=== PATIENT | male | born 1970 | race Caucasian/White ===

== ENCOUNTER 2017-03-21 01:43 | Observation (INO) | payer MEDICAID ==
[2017-03-21] MEDS: HYDROmorphONE 1 MG/ML SYG IV (02:05)
[2017-03-21 02:06] LABS: ADD MAN DIFF? NO
[2017-03-21 02:18] LABS: BASOPHILS % 0.4 % (0.0-2.0); EOSINOPHILS # 0.2 10^3/ul (0.0-0.5); HEMATOCRIT 38.9 % (42.0-52.0); HEMOGLOBIN 12.9 g/dl (14.0-18.0); LYMPHOCYTES % 25.8 % (15.0-51.0); MEAN CORPUSCULAR HEMOGLOBIN 27.7 pg (29.0-33.0); MEAN CORPUSCULAR HGB CONC 33.2 g/dl (32.0-37.0); MEAN CORPUSCULAR VOLUME 83.5 fl (82.0-101.0); MEAN PLATELET VOLUME 8.7 fl (7.4-10.4); MONOCYTE # 0.5 10^3/ul (0.3-0.9); MONOCYTES % 6.2 % (0.0-11.0); NEUTROPHILS % 65.3 % (39.0-77.0); PLATELET COUNT 239 10^3/UL (140-415); RED BLOOD COUNT 4.66 10^6/ul (4.70-6.10)
[2017-03-21 02:18] LABS: WHITE BLOOD COUNT 7.6 10^3/ul (4.8-10.8)
[2017-03-21 02:28] LABS: ANION GAP 13 (8-16); BLOOD UREA NITROGEN 6 mg/dl (7-20); CARBON DIOXIDE 27 mmol/L (21-31); CHLORIDE 103 mmol/L (97-110); CREATININE 0.82 mg/dl (0.61-1.24); GLUCOSE 106 mg/dl (70-220); SODIUM 140 mmol/L (135-144)
[2017-03-21 02:50] LABS: TROPONIN-I < 0.012 ng/ml (0.00-0.12)
[2017-03-21 02:52] LABS: POTASSIUM 2.9 mmol/L (3.5-5.1)
[2017-03-21] MEDS: MAGNESIUM SULFATE 2 GM/50 ML 50 ML IVPB (03:47)
[2017-03-21] MEDS: POTASSIUM CHLORIDE 40 MEQ in SOD CHLORIDE 0.9% 1,000 ML IV (03:48)
[2017-03-21] MEDS: POTASSIUM CHLORIDE (SR) 20 MEQ TAB PO (03:48)
[2017-03-21] MEDS: SOD CHLORIDE 0.9% 100 ML ×2 (03:48→03:52)
[2017-03-21] MEDS: IOHEXOL 100 ML (03:52)
[2017-03-21] MEDS: IOHEXOL 350MG/ML 50 ML BTL (03:53)
[2017-03-21] MEDS: morphine 4 MG/ML VIAL IV (03:59)
[2017-03-21 04:11] LABS: MAGNESIUM 1.7 mg/dl (1.7-2.5)
[2017-03-21] MEDS ORDERED: LORAZEPAM 2 MG INJ IV (06:00)
[2017-03-21] MEDS ORDERED: ONDANSETRON 4 MG INJ IV ×2 (06:00→07:00)
[2017-03-21] MEDS ORDERED: morphine 2 MG INJ IV (06:00)
[2017-03-21] MEDS ORDERED: NA PHOSPHATE/BIPHOS 133 ML ENEMA PR (06:00)
[2017-03-21] MEDS ORDERED: hydrALAzine 20 MG INJ IV (06:00)
[2017-03-21] MEDS ORDERED: DOCUSATE SODIUM 100 MG CAP PO (06:00)
[2017-03-21] MEDS ORDERED: NITROGLYCERIN (SL) 0.4 MG TAB SL (06:00)
[2017-03-21] MEDS ORDERED: NACL 0.9% 3 ML SYG IV (06:00)
[2017-03-21] MEDS ORDERED: MAGNESIUM HYDROXIDE 30ML CUP PO (06:00)
[2017-03-21] MEDS ORDERED: ACETAMINOPHEN 325 MG TAB PO ×2 (06:00→07:00)
[2017-03-21] MEDS ORDERED: ALBUTEROL/IPRATROPIUM (NEB) 3 ML AMP HHN (06:00)
[2017-03-21] MEDS: PANTOPRAZOLE (EC) 40 MG TAB PO (09:32)
[2017-03-21] MEDS: HEPARIN 5,000 UNIT/0.5 ML VIAL SC ×2 (09:32→21:07)
[2017-03-21] MEDS: HYDROCODONE/APAP (5/325) TAB PO (09:33)
[2017-03-21] MEDS: SOD CHLORIDE 0.45% 1,000 ML IV ×2 (09:33→18:00)
[2017-03-21 10:08] LABS: CREATINE KINASE 158 IU/L (23-200)
[2017-03-21 10:18] LABS: CK INDEX 0.6
[2017-03-21 10:20] LABS: CK-MB 0.87 ng/ml (0.0-2.4); TROPONIN-I < 0.012 ng/ml (0.00-0.12)
[2017-03-21 12:24] LABS: FREE T4 (FREE THYROXINE) 1.28 ng/dl (0.64-1.79)
[2017-03-21] MEDS: ASPIRIN (EC) 325 MG TAB PO (12:24)
[2017-03-21] MEDS: NICOTINE (14 MG/24 HR) PATCH TRANSDERM (12:25)
[2017-03-21 14:16] LABS: CREATINE KINASE 138 IU/L (23-200)
[2017-03-21 14:18] LABS: ANION GAP 12 (8-16); BLOOD UREA NITROGEN 6 mg/dl (7-20); CALCIUM 8.7 mg/dl (8.4-10.2); CARBON DIOXIDE 24 mmol/L (21-31); CHLORIDE 107 mmol/L (97-110); CREATININE 0.76 mg/dl (0.61-1.24); GLUCOSE 86 mg/dl (70-220); MAGNESIUM 2.2 mg/dl (1.7-2.5); POTASSIUM 3.8 mmol/L (3.5-5.1); SODIUM 139 mmol/L (135-144)
[2017-03-21 14:26] LABS: CK INDEX 0.5
[2017-03-21 14:31] LABS: CK-MB 0.73 ng/ml (0.0-2.4); TROPONIN-I < 0.012 ng/ml (0.00-0.12)
[2017-03-21] MEDS: KETOROLAC 30 MG INJ IV (16:38)
[2017-03-22 05:41] LABS: ADD MAN DIFF? NO
[2017-03-22 05:43] LABS: BASOPHILS % 0.8 % (0.0-2.0); EOSINOPHILS # 0.2 10^3/ul (0.0-0.5); EOSINOPHILS % 3.5 % (0.0-7.0); HEMATOCRIT 38.9 % (42.0-52.0); HEMOGLOBIN 12.5 g/dl (14.0-18.0); LYMPHOCYTES % 39.9 % (15.0-51.0); MEAN CORPUSCULAR HEMOGLOBIN 27.7 pg (29.0-33.0); MEAN CORPUSCULAR HGB CONC 32.1 g/dl (32.0-37.0); MEAN CORPUSCULAR VOLUME 86.1 fl (82.0-101.0); MONOCYTE # 0.4 10^3/ul (0.3-0.9); MONOCYTES % 7.5 % (0.0-11.0); NEUTROPHIL # 2.4 10^3/ul (1.6-7.5); NEUTROPHILS % 48.1 % (39.0-77.0); PLATELET COUNT 221 10^3/UL (140-415); RED BLOOD COUNT 4.52 10^6/ul (4.70-6.10); RED CELL DISTRIBUTION WIDTH 13.3 % (11.5-14.5)
[2017-03-22 05:43] LABS: WHITE BLOOD COUNT 4.9 10^3/ul (4.8-10.8)
[2017-03-22 05:54] LABS: HEMOGLOBIN A1C 5.2 % (0-5.9)
[2017-03-22 06:08] LABS: CHOL/HDL RATIO 3.5 RATIO; HDL CHOLESTEROL 44 mg/dl (27-67); LDL CHOLESTEROL,CALCULATED 93 mg/dl; TRIGLYCERIDES 101 mg/dl (0-149)
[2017-03-22 06:08] LABS: CHOLESTEROL 157 mg/dl (100-200)
[2017-03-22 06:09] LABS: ANION GAP 10 (8-16); BLOOD UREA NITROGEN 11 mg/dl (7-20); CARBON DIOXIDE 30 mmol/L (21-31); CHLORIDE 105 mmol/L (97-110); CREATININE 0.97 mg/dl (0.61-1.24); GLUCOSE 99 mg/dl (70-220); MAGNESIUM 2.1 mg/dl (1.7-2.5); PHOSPHORUS 4.8 mg/dl (2.5-4.9); POTASSIUM 4.1 mmol/L (3.5-5.1); SODIUM 141 mmol/L (135-144)
[2017-03-22] MEDS: PANTOPRAZOLE (EC) 40 MG TAB PO (06:28)
[2017-03-22] MEDS: SOD CHLORIDE 0.45% 1,000 ML IV (09:04)
[2017-03-22] MEDS: HEPARIN 5,000 UNIT/0.5 ML VIAL SC ×2 (09:05→20:51)
[2017-03-22] MEDS: ASPIRIN (EC) 325 MG TAB PO (10:05)
[2017-03-22] MEDS: NICOTINE (14 MG/24 HR) PATCH TRANSDERM (10:06)
[2017-03-22] MEDS: INFLUENZA VIRUS VACCINE 0.5 ML SYG IM* (11:01)
[2017-03-22] MEDS: HYDROCODONE/APAP (5/325) TAB PO (22:01)
[2017-03-23 04:50] LABS: ADD MAN DIFF? NO
[2017-03-23 04:54] LABS: WHITE BLOOD COUNT 5.5 10^3/ul (4.8-10.8)
[2017-03-23 04:54] LABS: BASOPHILS % 0.4 % (0.0-2.0); EOSINOPHILS # 0.2 10^3/ul (0.0-0.5); EOSINOPHILS % 3.1 % (0.0-7.0); HEMATOCRIT 37.9 % (42.0-52.0); HEMOGLOBIN 12.1 g/dl (14.0-18.0); LYMPHOCYTES # 1.8 10^3/ul (0.8-2.9); MEAN CORPUSCULAR HEMOGLOBIN 27.9 pg (29.0-33.0); MEAN CORPUSCULAR HGB CONC 31.9 g/dl (32.0-37.0); MEAN CORPUSCULAR VOLUME 87.3 fl (82.0-101.0); MEAN PLATELET VOLUME 8.7 fl (7.4-10.4); MONOCYTE # 0.4 10^3/ul (0.3-0.9); MONOCYTES % 7.5 % (0.0-11.0); NEUTROPHIL # 3.1 10^3/ul (1.6-7.5); NEUTROPHILS % 55.8 % (39.0-77.0); PLATELET COUNT 213 10^3/UL (140-415); RED BLOOD COUNT 4.34 10^6/ul (4.70-6.10); RED CELL DISTRIBUTION WIDTH 13.2 % (11.5-14.5)
[2017-03-23 05:35] LABS: ANION GAP 11 (8-16); BLOOD UREA NITROGEN 12 mg/dl (7-20); CALCIUM 8.5 mg/dl (8.4-10.2); CARBON DIOXIDE 27 mmol/L (21-31); CHLORIDE 108 mmol/L (97-110); GLUCOSE 113 mg/dl (70-220); SODIUM 142 mmol/L (135-144)
[2017-03-23 06:28] LABS: TROPONIN-I < 0.012 ng/ml (0.00-0.12)
[2017-03-23] MEDS: HEPARIN 5,000 UNIT/0.5 ML VIAL SC (08:31)
[2017-03-23] MEDS: NICOTINE (14 MG/24 HR) PATCH TRANSDERM (08:32)
[2017-03-23] MEDS: ASPIRIN 81 MG TAB PO (08:33)
[2017-03-23] MEDS: REGADENOSON 0.4 MG/5 ML SYG (11:20)
== END 2017-03-23 14:15 | disposition home or self-care (01) ==
LOC: E/R 01:43 → MS3 06:55
DX: R07.9 Chest pain, unspecified (principal); E87.6 Hypokalemia; I10 Essential (primary) hypertension; Z72.0 Tobacco use; R94.31 Abnormal electrocardiogram [ECG] [EKG]; E05.80 Other thyrotoxicosis without thyrotoxic crisis or storm; Z79.82 Long term (current) use of aspirin; Z23 Encounter for immunization
CPT/HCPCS: 36415; 70498; 71045; 71275; 75635; 78452; 80048; 80061; 82550; 82553; 83036; 83735; 84100; 84439; 84443; 84484; 85025; 90686; 93005; 93017; 93306; 96372; 96374; 96375; 99285-25; G0378